=== PATIENT | male | born 1940 | race Caucasian/White ===

== ENCOUNTER 2019-02-01 10:01 | Inpatient (IN) | payer MEDICARE, OTHER | END 2019-02-05 14:00 | LOC: ER 10:01 → ED HOLD 15:25 → ORTHO 4S 17:45 | DX: T40.601A Poisoning by unspecified narcotics, accidental (unintentional), initial encounter (principal); S42.401A Unspecified fracture of lower end of right humerus, initial encounter for closed fracture; N18.9 Chronic kidney disease, unspecified; I12.9 Hypertensive chronic kidney disease with stage 1 through stage 4 chronic kidney disease, or unspecified chronic kidney disease ==